=== PATIENT | male | born 1955 | race Two or more races ===

== ENCOUNTER 2018-05-30 06:06 | Emergency (ER) | payer MEDICARE, MEDICAID ==
[~2018-05-30] VITALS: Ht 182.9 cm; Wt 113.4 kg
[2018-05-30 06:09] VITALS: BP 144/88
--- NOTE | 2018-05-30 06:14 | NUR ---
ER MD BOWDEN AT BEDSIDE
--- NOTE | 2018-05-30 06:14 | NUR ---
[employer] FOUND WANDERING ON STREETS REPORTED BY BYSTANDER, ADMITS TO ETOH. CALM, COOPERATIVE, ALERT, AND VERBALLY RESPONSIVE. PT IS SOMEWHAT DISORIENTED. RESP EVEN UNLABORED. SKIN WARM DRY. DENIES COMPLAINTS. REQUESTS FOOD. IN ER BED 01.
== END 2018-05-30 06:38 | disposition home or self-care (01) ==
LOC: ER 06:09
DX: F10.129 Alcohol abuse with intoxication, unspecified (principal); F31.9 Bipolar disorder, unspecified; I10 Essential (primary) hypertension; E11.9 Type 2 diabetes mellitus without complications; F17.200 Nicotine dependence, unspecified, uncomplicated; Y90.9 Presence of alcohol in blood, level not specified; Z59.0 Homelessness; Z88.8 Allergy status to other drugs, medicaments and biological substances
CPT/HCPCS: A4606; Z7610